=== PATIENT | male | born 1975 | race Two or more races ===

== ENCOUNTER 2021-09-08 02:51 | Emergency (ER) | payer OTHER ==
[~2021-09-08] VITALS: Ht 182.9 cm; Wt 90.7 kg
[2021-09-08 03:01] VITALS: BP 135/76
[2021-09-08] MEDS ORDERED: IBUPROFEN 400 MG TABLET ONE (03:17)
[2021-09-08] MEDS ORDERED: IBUPROFEN 400 MG TABLET PO ONE (03:30)
[2021-09-08] MEDS ORDERED: LORAZEPAM 1 MG TABLET ONE (04:58)
[2021-09-08] MEDS ORDERED: LORAZEPAM 1 MG TABLET PO ONE (05:00)
== END 2021-09-08 06:29 | disposition home or self-care (01) ==
LOC: ER 02:59
DX: S20.211A Contusion of right front wall of thorax, initial encounter (principal); F10.129 Alcohol abuse with intoxication, unspecified; Y90.9 Presence of alcohol in blood, level not specified; Z60.2 Problems related to living alone; W22.8XXA Striking against or struck by other objects, initial encounter; Y93.89 Activity, other specified; Y92.89 Other specified places as the place of occurrence of the external cause; Y99.8 Other external cause status
CPT/HCPCS: 71100-TC